=== PATIENT | female | born 1955 | race Caucasian/White ===

== ENCOUNTER 2017-03-09 06:02 | Inpatient (IN) | payer OTHER ==
[2017-03-08 15:55] VITALS: BMI 20.3
[2017-03-09] MEDS ORDERED: ACETAMINOPHEN INJECTION 100 ML IVPB ONE (07:16)
[2017-03-09] MEDS ORDERED: HYDROmorphone HCL/PF 1 MG/ML VIAL (FOR PYXIS CHARGING ONLY) ONE (07:24)
[2017-03-09] MEDS ORDERED: ROCURONIUM BROMIDE 50 MG/5 ML VIAL ONE ×2 (07:24→09:42)
[2017-03-09] MEDS ORDERED: ePHEDrine SULFATE 50 MG/1 ML AMPULE ONE (07:24)
[2017-03-09] MEDS ORDERED: fentaNYL CITRATE 250 MCG/5 ML VIAL ONE (07:24)
[2017-03-09] MEDS ORDERED: PROPOFOL 20 ML ONE ×3 (07:24)
[2017-03-09] MEDS ORDERED: SUCCINYLCHOLINE CHLORIDE 200 MG/10 ML VIAL ONE (07:24)
[2017-03-09] MEDS ORDERED: MIDAZOLAM HCL 2 MG/2 ML SINGLE DOSE VIAL ONE ×2 (07:25)
[2017-03-09] MEDS ORDERED: BUPIVACAINE HCL/PF 0.5% (5MG/ML) 10 ML VIAL ONE (07:28)
[2017-03-09] MEDS ORDERED: VANCOMYCIN 1,000 MG VIAL (RESTRICTED TO ID ONLY) ONE ×2 (07:28→08:41)
[2017-03-09] MEDS ORDERED: SEVOFLURANE 250 ML BTL ONE (07:28)
[2017-03-09] MEDS ORDERED: GENTAMICIN SO4 80 MG/2 ML VIAL ONE (07:28)
[2017-03-09] MEDS ORDERED: LIDOCAINE HCL/PF 2% SDV 5ML VIAL ONE (07:29)
[2017-03-09] MEDS ORDERED: LIDOCAINE 1%/EPI 1:100000 (20 ML MULTI DOSE VIAL) ONE (07:29)
--- NOTE | 2017-03-09 07:38 | HP ---
History & Physical Update - History History: No Change - Physical Physical: No Change - Assessment Assessment: No Change - Plan Plan: No Change
[2017-03-09] MEDS ORDERED: SCOPOLAMINE HYDROBROMIDE 1 PATCH PATCH.TD72 ONE (07:57)
[2017-03-09] MEDS ORDERED: VANCOMYCIN 1 GRAM (PRE-DOCKED) 1,000 MG/250 ML BAG IVPB ONE (08:58)
[2017-03-09] MEDS ORDERED: ceFAZolin SODIUM 1 GM VIAL IVPB ONE (09:15)
[2017-03-09] MEDS ORDERED: LIDOCAINE 1%/EPI 1:100000 (50 ML MULTI DOSE VIAL) INF ONE (09:16)
[2017-03-09] MEDS ORDERED: SODIUM CHLORIDE 0.9% P/F 10 ML VIAL IJ ONE ×2 (10:20→13:29)
[2017-03-09] MEDS ORDERED: GELATIN, ABSORBABLE 100 EACH SPONGE TP ONE (10:22)
[2017-03-09] MEDS ORDERED: MINERAL OIL/PETROLATUM,WHITE 3.5 GM TUBE ONE (10:23)
[2017-03-09] MEDS ORDERED: THROMBIN (BOVINE) 5,000 UNIT VIAL TP ONE (10:23)
[2017-03-09] MEDS ORDERED: DEXAMETHASONE SOD PHOSPHATE 4 MG/1 ML VIAL ONE (10:26)
[2017-03-09] MEDS ORDERED: PROMETHAZINE HCL 25 MG/1 ML VIAL IVPB PRN (12:48)
[2017-03-09] MEDS ORDERED: PROMETHAZINE HCL 25 MG/1 ML VIAL IVPUSH PRN (12:48)
[2017-03-09] MEDS ORDERED: ONDANSETRON 4 MG/2 ML VIAL IVPUSH PRN ×2 (12:48→13:55)
[2017-03-09] MEDS ORDERED: HYDROmorphone *PCA* 10MG/50ML DISP.SYRIN PCA ONE (13:38)
[2017-03-09] MEDS ORDERED: LACTATED RINGERS SOLUTION 1,000 ML IV SCH (14:00)
[2017-03-09] MEDS ORDERED: LORazepam 1 MG TABLET PO PRN (14:03)
--- NOTE | 2017-03-09 14:49 | OP ---
Operative Note - Note: Operative Date: 03/09/17 Pre-Operative Diagnosis: spinal stenosis, juxtafacet cyst Operation: L4-L5 laminectomy, resection of juxtfacet cyst, interbody cage placement, posterior fusion of L4-L5 Surgeon: Abhijit Ramos Supervisor [employer]: Olga Bourne Anesthesiologist/SYSTEM SUPPORT TECHNICIAN: Lauro Armenta Anesthesia: General Specimens Removed: ligamentum flavum, juxtafacet cyst Estimated Blood Loss (mls): 100 Drains, Volume Out (mls): 150 (sanchez) Fluid Volume Replaced (mls): 2,000 Operative Report Dictated: Yes
--- NOTE | 2017-03-09 14:51 | SURG ---
Surgery [facility] Note [facility]: Olga Bourne PA-C Date of Service: 03/09/17 Diagnosis: spinal stenosis, juxtafacet cyst Procedure: L4-L5 laminectomy, resection of juxtafacet byst, interbody cage placement, posterior fusion L4-L5. I was present for the entirety of the operative procedure. For further detail, please refer to operative report. Visit type - Case Type Case Type: Scheduled Admission - Emergency Emergency Visit: No - New patient This patient is new to me today: Yes Date on this admission: 03/09/17
[2017-03-09] MEDS: HYDROmorphone *PCA* 10MG/50ML DISP.SYRIN PCA SCH (15:38)
[2017-03-09] MEDS ORDERED: PT OWN MED DRAWER 7, Y5N ONE (17:24)
[2017-03-09] MEDS: CEFAZOLIN 1 GM PUSH 1 GM/10 ML DISP.SYRIN IVPUSH SCH ×2 (17:52→17:53)
[2017-03-09] MEDS: LACTATED RINGERS SOLUTION 1,000 ML IV SCH (21:31)
[2017-03-09] MEDS: ATORVASTATIN CA 10 MG TABLET (FP) PO SCH (21:33)
[2017-03-09] MEDS: HEPARIN NA (PORCINE) 5,000 UNITS/ML 1ML VIAL SQ SCH (21:33)
[2017-03-10] MEDS: CEFAZOLIN 1 GM PUSH 1 GM/10 ML DISP.SYRIN IVPUSH SCH ×3 (01:48→17:59)
[2017-03-10] MEDS: LACTATED RINGERS SOLUTION 1,000 ML IV SCH (05:08)
[2017-03-10] MEDS: HEPARIN NA (PORCINE) 5,000 UNITS/ML 1ML VIAL SQ SCH ×4 (05:48→22:22)
[2017-03-10] MEDS: ACETAMINOPHEN 325 MG TABLET (FP) PO PRN (05:49)
[2017-03-10 08:18] LABS: MCH 31.6 pg (25.7-33.7); MCHC 34.2 g/dl (32.0-36.0); MEAN CELL VOLUME 92.2 fl (80-96); MEAN PLT VOLUME 6.9 fl (7.5-11.1); PLATELET COUNT 212 K/MM3 (134-434); RDW 12.9 % (11.6-15.6)
[2017-03-10 08:30] LABS: ANION GAP 9 (8-16); CALCIUM 8.5 mg/dL (8.5-10.1); CO2 28 mmol/L (21-32); CREATININE 0.6 mg/dL (0.55-1.02); GLUCOSE,RANDOM 104 mg/dL (74-106)
[2017-03-10] MEDS: HYDROmorphone *PCA* 10MG/50ML DISP.SYRIN PCA SCH (08:30)
--- NOTE | 2017-03-10 09:23 | HP ---
Admitting History and Physical - Past Medical History VIBRATION TECHNICIAN: Yes: Other (MENINGIOMA) Cardiovascular: Yes: Hyperlipdemia ...: No Psych: Yes: Bipolar Endocrine: No: Diabetes Mellitus - Past Surgical History Past Surgical History: Yes: Craniotomy (MENGIOMA 10 YEARS AGO) - Advance Directives Advance Directives: Yes: Living Will - Smoking History Smoking history: Former smoker Have you smoked in the past 12 months: No - Alcohol/Substance Use Hx Alcohol Use: Yes (DAILY 2 GLASSES WHITE WINE) Home Medications - Allergies Allergies/Adverse Reactions: Allergies Allergy/AdvReac Type Severity Reaction Status Date / Time No Known Drug Allergies Allergy Verified 03/09/17 07:07 - Home Medications Home Medications: Ambulatory Orders Bupropion HCl [Bupropion HCl ER] 200 mg PO DAILY 03/08/17 Lamotrigine [Lamictal (Green)] 200 mg PO DAILY 03/08/17 Lisinopril 10 mg PO DAILY 03/08/17 Lorazepam 1 mg PO ASDIR 03/08/17 Pravastatin Sodium 20 mg PO HS 03/08/17 Sertraline HCl [Zoloft] 200 mg PO DAILY 03/08/17 Review of Systems - Review of Systems Cardiovascular: denies: Chest Pain, Palpitations Respiratory: denies: SOB Gastrointestinal: denies: Abdominal Pain Musculoskeletal: reports: Back Pain Physical Examination Vital Signs: Vital Signs Temperature 101.6 F H 03/10/17 08:00 Pulse Rate 100 H 03/10/17 08:30 Respiratory Rate 20 03/10/17 08:30 Blood Pressure 115/55 03/10/17 08:30 O2 Sat by Pulse Oximetry (%) 94 L 03/09/17 21:00 Constitutional: Yes: Calm Cardiovascular: Yes: Regular Rate and Rhythm Respiratory: Yes: Regular, CTA Bilaterally Gastrointestinal: Yes: Normal Bowel Sounds, Soft. No: Tenderness Edema: No Neurological: Yes: Alert, Oriented Labs: CBC, BMP 03/10/17 07:40 03/10/17 07:40 Problem List - Problems (1) S/P laminectomy Assessment/Plan: PER N/S PAIN CONTROL PT Laboratory Tests 03/10/17 07:40 Hgb 10.1 L D Hct 29.5 L D Code(s): Z98.890 - OTHER SPECIFIED POSTPROCEDURAL STATES (2) HLD (hyperlipidemia) Assessment/Plan: STABLE ON STATIN Code(s): E78.5 - HYPERLIPIDEMIA, UNSPECIFIED (3) Bipolar 1 disorder Assessment/Plan: SAME MEDS MONITOR Code(s): F31.9 - BIPOLAR DISORDER, UNSPECIFIED (4) S/P resection of meningioma Code(s): Z98.890 - OTHER SPECIFIED POSTPROCEDURAL STATES; Z86.018 - PERSONAL HISTORY OF OTHER BENIGN NEOPLASM (5) Fever Assessment/Plan: POSTOP INCENTIVE SPIROMETRY NAVA OUT WBC NORMAL MONITOR Code(s): R50.9 - FEVER, UNSPECIFIED
[2017-03-10] MEDS: LORazepam 1 MG TABLET PO PRN ×2 (09:24→22:21)
[2017-03-10] MEDS: lamoTRIgine 100 MG TABLET (FP) PO SCH (09:24)
[2017-03-10] MEDS: SERTRALINE HCL 50 MG TABLET (FP) PO SCH (09:25)
[2017-03-10] MEDS ORDERED: PATIENT'S OWN MEDICATION (NON-FORMULARY) (Bupropion Hcl [Bupropion Hcl Er] 200 MG) PO SCH (10:00)
[2017-03-10] MEDS ORDERED: SENNOSIDES 8.6MG TABLET (FP) PO PRN (12:00)
--- NOTE | 2017-03-10 12:02 | PN ---
Progress Note (short form) - Note Progress Note: Surgery note POD #1 s/p L4-L5 laminectomy, resection of juxtfacet cyst, interbody cage placement, posterior fusion of L4-L5. Patient seen and examined at bedside with Dr Ramos. Patient with low grade fever. Patient c/o 10/10 pain on NON DESTRUCTIVE TESTER but resting comfortably in bed. Patient is pleasant and talkative. She is tolerating a clear diet and denies any CP, chills, N/V. She denies any new radicular symptoms or paresthesias in B/L LE. Vital Signs Temp 101.6 F H 03/10/17 08:00 Pulse 100 H 03/10/17 08:30 Resp 20 03/10/17 08:30 BP 115/55 03/10/17 08:30 Pulse Ox 94 L 03/09/17 21:00 Intake & Output 03/09/17 03/10/17 03/10/17 23:59 11:59 23:59 Intake Total 500 1500 Output Total 1390 710 Balance -890 790 Intake: IV 200 1500 Lactated Ringers Solution 1500 1,000 ml @ 125 mls/hr IV ASDIR [facility] Rx#: [id number] Oral 300 Output: Drainage 190 110 Lower Back 90 110 Urine 1200 600 Ricks 900 600 Other: Voiding Method Indwelling Catheter CBC, BMP 03/10/17 07:40 03/10/17 07:40 PE: A&Ox3, NAD Unlabored resp on RA Dressings, C/D/I with surrounding skin intact and no evidence of tracking erythema. BENITA drain at right lumbar intact with serosanginous d/c B/L LE compartments soft, supple and non-tender to palpation, NVID with 5/5 strength on dorsi/plantar flexion. Assessment and plan: S/P Lumbar fusion and resection of cyst doing well with low grade fever. 1) Continue Current POC-ancef Q8hrs while BENITA drain in place. 2) DVT prophylaxis with b/l scds and heparin 3) OOB with PT-as tolerated 4) Encourage IS-reinforced with patient
[2017-03-10] MEDS: LISINOPRIL 10 MG TABLET (FP) PO SCH (13:05)
--- NOTE | 2017-03-10 15:33 | PN ---
Progress Note, Physician Chief Complaint: Pt. pain controlled with WAITER/WAITRESS TAVERN, no GA complications. - Current Medication List Current Medications: Active Medications Acetaminophen (Tylenol -) 650 mg PO Q6H PRN Last Admin: 03/10/17 05:49 Dose: 650 mg Atorvastatin Calcium (Lipitor -) 10 mg PO HS [facility] Last Admin: 03/09/17 21:33 Dose: 10 mg Heparin Sodium (Porcine) (Heparin -) 5,000 unit SQ TID [facility] Last Admin: 03/10/17 13:13 Dose: 5,000 unit Hydromorphone HCl (Dilaudid Insurance Examiner -) 10 mg WAITER/WAITRESS TAVERN WAITER/WAITRESS TAVERN [facility] PRN Reason: Protocol Stop: 03/16/17 12:48 Last Admin: 03/10/17 08:30 Dose: 10 mg Cefazolin Sodium (Ancef -) 1 gm in 10 mls @ 100 mls/hr IVPUSH Q8H-IV [facility] Last Admin: 03/10/17 09:45 Dose: 100 mls/hr Lamotrigine (Lamictal -) 200 mg PO DAILY [facility] Last Admin: 03/10/17 09:24 Dose: 200 mg Lisinopril (Prinivil) 10 mg PO DAILY [facility] Last Admin: 03/10/17 13:05 Dose: Not Given Lorazepam (Ativan -) 1 mg PO Q12H PRN PRN Reason: ANXIETY Last Admin: 03/10/17 09:24 Dose: 1 mg Non-Formulary Medication (Bupropion Hcl [Bupropion Hcl Er]) 200 mg PO DAILY [facility] Ondansetron HCl (Zofran Injection) 4 mg IVPUSH Q6H PRN PRN Reason: NAUSEA AND/OR VOMITING Ondansetron HCl (Zofran Injection) 4 mg IVPUSH Q4H PRN PRN Reason: NAUSEA AND/OR VOMITING Ondansetron HCl (Zofran Injection) 4 mg IVPUSH Q6H PRN PRN Reason: NAUSEA AND/OR VOMITING Promethazine HCl (Phenergan Injection -) 12.5 mg IVPB Q6H PRN PRN Reason: NAUSEA AND/OR VOMITING Senna (Senna -) 2 tab PO HS PRN PRN Reason: CONSTIPATION Sertraline HCl (Zoloft -) 200 mg PO DAILY [facility] Last Admin: 03/10/17 09:25 Dose: 200 mg - Objective Vital Signs: Vital Signs Temperature 100.2 F H 03/10/17 13:02 Pulse Rate 102 H 03/10/17 13:02 Respiratory Rate 18 03/10/17 13:02 Blood Pressure 115/55 03/10/17 13:02 O2 Sat by Pulse Oximetry (%) 94 L 03/09/17 21:00 Constitutional: Yes: Well Nourished, No Distress, Calm Musculoskeletal: Yes: WNL Neurological: Yes: WNL, Alert, Oriented Labs: CBC, BMP 03/10/17 07:40 03/10/17 07:40 Assessment/Plan POD#1 s/p L4-5 Laminectomy and fusion under GA. Still using WAITER/WAITRESS TAVERN for pain control. Doing well. Continue WAITER/WAITRESS TAVERN
--- NOTE | 2017-03-10 15:52 | PATH ---
Surgical Pathology Report Patient Name: DEVIN PITTS [facility]. Rec. #: [id number] /Age/Gender: 1955 (Age: 61) / F Account: [id number] Location: [address] [place] [address] Taken: 03/09/2017 Received: 03/09/2017 Reported: 03/10/2017 Physicians: Abhijit Cabral M.D. Specimen(s) Received A: LIGAMENTUM FLAVUM B: JUXTA FACET CYST Clinical History L4-L5 stenosis with juxta facet cyst Final Diagnosis A. LIGAMENTUM FLAVUM, RESECTION: FIBROCOLLAGENOUS TISSUE, CARTILAGE, BONE AND SKELETAL MUSCLE. B. JUXTA-FACETCYST, RESECTION: PREDOMINANTLY FIBROCOLLAGENOUS TISSUE AND BONE. DETACHED FRAGMENTS OF FIBROUS TISSUE WITH GRANULATION TISSUE FORMATION, SUGGESTIVE OF CYST WALL. Electronically Signed Nusrat Lay M.D. Gross Description A. Received in formalin labeled "ligamentum flavum," is a 4.0 x 1.7 x 0.4 cm irregular portion of fibrous tissue, consistent with a ligament. Shipping Point Inspector sections are submitted in one cassette. B. Received in formalin labeled "juxta facet cyst," is a 1.8 x 1.5 x 0.3 cm aggregate of weathers fragments of fibrous tissue. The specimen is entirely submitted in one cassette 03/09/201703/09/2017
[2017-03-10] MEDS: LACTATED RINGERS SOLUTION 1,000 ML/1,000 ML INFUS.BAG IV SCH (17:07)
[2017-03-10] MEDS: ATORVASTATIN CA 10 MG TABLET (FP) PO SCH ×2 (21:17→22:21)
[2017-03-11] MEDS: ACETAMINOPHEN 325 MG TABLET (FP) PO PRN ×2 (00:34→17:55)
[2017-03-11] MEDS: CEFAZOLIN 1 GM PUSH 1 GM/10 ML DISP.SYRIN IVPUSH SCH ×3 (01:38→17:33)
[2017-03-11] MEDS: HEPARIN NA (PORCINE) 5,000 UNITS/ML 1ML VIAL SQ SCH ×3 (06:16→21:12)
[2017-03-11 07:52] LABS: BASOPHIL 0.2 % (0-2.0); EOSINOPHIL 0.3 % (0-4.5); MCH 31.3 pg (25.7-33.7); MCHC 33.6 g/dl (32.0-36.0); MEAN CELL VOLUME 93.2 fl (80-96); MEAN PLT VOLUME 6.9 fl (7.5-11.1); PLATELET COUNT 213 K/MM3 (134-434)
[2017-03-11 08:22] LABS: ALBUMIN 2.6 g/dl (3.4-5.0); ALK PHOS 40 U/L (45-117); ANION GAP 8 (8-16); BILIRUBIN,TOTAL 0.6 mg/dL (0.2-1.0); CO2 29 mmol/L (21-32); CREATININE 0.5 mg/dL (0.55-1.02); GLUCOSE,RANDOM 93 mg/dL (74-106); SGOT/AST 22 U/L (15-37); SGPT/ALT 19 U/L (12-78)
[2017-03-11] MEDS ORDERED: PT OWN MED DRAWER 7, Y5N ONE ×2 (09:35→17:29)
[2017-03-11] MEDS: SERTRALINE HCL 50 MG TABLET (FP) PO SCH (09:36)
[2017-03-11] MEDS: lamoTRIgine 100 MG TABLET (FP) PO SCH (09:36)
[2017-03-11] MEDS: POTASSIUM CHLORIDE TABS 20 MEQ TABLET.ER (FP) PO SCH ×2 (11:38→21:12)
[2017-03-11] MEDS: LISINOPRIL 10 MG TABLET (FP) PO SCH (11:39)
--- NOTE | 2017-03-11 12:11 | PN ---
Progress Note, Physician Chief Complaint: POD 2 s/p laminectomy of l4-l5 on field reimbursement manager pump passing gas did ambulate with PT today fever of 101 today - Current Medication List Current Medications: Active Medications Acetaminophen (Tylenol -) 650 mg PO Q6H PRN Last Admin: 03/11/17 00:34 Dose: 650 mg Atorvastatin Calcium (Lipitor -) 10 mg PO HS [facility] Last Admin: 03/10/17 22:21 Dose: 10 mg Heparin Sodium (Porcine) (Heparin -) 5,000 unit SQ TID [facility] Last Admin: 03/11/17 06:16 Dose: 5,000 unit Hydromorphone HCl (Dilaudid Spinning Room Worker -) 10 mg HOT STRIP MILL SUPERVISOR HOT STRIP MILL SUPERVISOR [facility] PRN Reason: Protocol Stop: 03/16/17 12:48 Last Admin: 03/10/17 08:30 Dose: 10 mg Cefazolin Sodium (Ancef -) 1 gm in 10 mls @ 100 mls/hr IVPUSH Q8H-IV [facility] Last Admin: 03/11/17 09:37 Dose: 100 mls/hr Lactated Ringer's (Lactated Ringers Solution) 1,000 ml in 1,000 mls @ 10 mls/ hr IV ASDIR [facility] Last Admin: 03/10/17 17:07 Dose: 10 mls/hr Lamotrigine (Lamictal -) 200 mg PO DAILY [facility] Last Admin: 03/11/17 09:36 Dose: 200 mg Lisinopril (Prinivil) 10 mg PO DAILY [facility] Last Admin: 03/11/17 11:39 Dose: 10 mg Lorazepam (Ativan -) 1 mg PO Q12H PRN PRN Reason: ANXIETY Last Admin: 03/10/17 22:21 Dose: 1 mg Non-Formulary Medication (Bupropion Hcl [Bupropion Hcl Er]) 200 mg PO DAILY [facility] Ondansetron HCl (Zofran Injection) 4 mg IVPUSH Q6H PRN PRN Reason: NAUSEA AND/OR VOMITING Ondansetron HCl (Zofran Injection) 4 mg IVPUSH Q4H PRN PRN Reason: NAUSEA AND/OR VOMITING Ondansetron HCl (Zofran Injection) 4 mg IVPUSH Q6H PRN PRN Reason: NAUSEA AND/OR VOMITING Potassium Chloride (K-Dur -) 20 meq PO BID [facility] Stop: 03/12/17 22:01 Last Admin: 03/11/17 11:38 Dose: 20 meq Promethazine HCl (Phenergan Injection -) 12.5 mg IVPB Q6H PRN PRN Reason: NAUSEA AND/OR VOMITING Senna (Senna -) 2 tab PO HS [facility] Sertraline HCl (Zoloft -) 200 mg PO DAILY [facility] Last Admin: 03/11/17 09:36 Dose: 200 mg - Objective Vital Signs: Vital Signs Temperature 99.9 F H 03/11/17 09:07 Pulse Rate 97 H 03/11/17 09:07 Respiratory Rate 20 03/11/17 09:07 Blood Pressure 109/59 03/11/17 09:07 O2 Sat by Pulse Oximetry (%) 94 L 03/09/17 21:00 Constitutional: Yes: Calm Cardiovascular: Yes: Regular Rate and Rhythm, S1, S2 Respiratory: Yes: CTA Bilaterally Gastrointestinal: Yes: Normal Bowel Sounds, Soft Musculoskeletal: Yes: Other (lower back dresing intact, BENITA drain with serosanginous drainage) Edema: No Neurological: Yes: Alert, Oriented Labs: CBC, BMP 03/11/17 06:35 03/11/17 06:35 Problem List - Problems (1) S/P laminectomy Assessment/Plan: POD 2 field reimbursement manager pump for pain control stool softners iv abx for fever of 101 dvt ppx incentive spirometry Code(s): Z98.890 - OTHER SPECIFIED POSTPROCEDURAL STATES (2) HLD (hyperlipidemia) Assessment/Plan: statin Code(s): E78.5 - HYPERLIPIDEMIA, UNSPECIFIED (3) Hypokalemia Assessment/Plan: repleted check in AM labs Code(s): E87.6 - HYPOKALEMIA
--- NOTE | 2017-03-11 13:26 | PN ---
Progress Note (short form) - Note Progress Note: POD #2 - s/p L4-L5 laminectomy with fusion, on dilaudid SALES DEVELOPMENT CONSULTANT for post-op pain management. VSS. Pt. doing well, resting comfortably in bed. No complaints. Discussed discontinuing IV dilaudid SALES DEVELOPMENT CONSULTANT and ordering PO oxycodone with pt. who agrees. Continue current care.
[2017-03-11] MEDS ORDERED: oxyCODONE HCL 5 MG TABLET PO PRN (13:27)
[2017-03-11] MEDS: LACTATED RINGERS SOLUTION 1,000 ML/1,000 ML INFUS.BAG IV SCH (13:27)
[2017-03-11] MEDS: HYDROmorphone *PCA* 10MG/50ML DISP.SYRIN PCA SCH (13:50)
[2017-03-11] MEDS: oxyCODONE HCL 5 MG TABLET PO PRN (17:36)
[2017-03-11] MEDS: LORazepam 1 MG TABLET PO PRN (19:28)
[2017-03-11] MEDS: ATORVASTATIN CA 10 MG TABLET (FP) PO SCH (21:12)
[2017-03-11] MEDS: SENNOSIDES 8.6MG TABLET (FP) PO SCH (21:15)
[2017-03-12] MEDS ORDERED: PT OWN MED DRAWER 7, Y5N ONE ×2 (02:30→09:29)
[2017-03-12] MEDS: CEFAZOLIN 1 GM PUSH 1 GM/10 ML DISP.SYRIN IVPUSH SCH ×3 (02:41→09:37)
[2017-03-12] MEDS: ACETAMINOPHEN 325 MG TABLET (FP) PO PRN ×3 (03:40→18:07)
[2017-03-12] MEDS: HEPARIN NA (PORCINE) 5,000 UNITS/ML 1ML VIAL SQ SCH ×3 (05:57→21:14)
[2017-03-12] MEDS: HYDROmorphone *PCA* 10MG/50ML DISP.SYRIN PCA SCH (07:20)
[2017-03-12 09:10] LABS: MCH 31.6 pg (25.7-33.7); MCHC 34.5 g/dl (32.0-36.0); MEAN CELL VOLUME 91.8 fl (80-96); MEAN PLT VOLUME 7.2 fl (7.5-11.1); PLATELET COUNT 228 K/MM3 (134-434); RDW 12.9 % (11.6-15.6); WHITE BLOOD COUNT 7.7 K/mm3 (4.0-10.0)
[2017-03-12 09:31] LABS: ALBUMIN 2.6 g/dl (3.4-5.0); ANION GAP 9 (8-16); CALCIUM 7.9 mg/dL (8.5-10.1); CO2 27 mmol/L (21-32); CREATININE 0.4 mg/dL (0.55-1.02); GLUCOSE,RANDOM 112 mg/dL (74-106); SGOT/AST 16 U/L (15-37); SGPT/ALT 18 U/L (12-78)
[2017-03-12] MEDS: LISINOPRIL 10 MG TABLET (FP) PO SCH (09:33)
[2017-03-12] MEDS: POTASSIUM CHLORIDE TABS 20 MEQ TABLET.ER (FP) PO SCH ×2 (09:33→21:13)
[2017-03-12 09:34] LABS: ALK PHOS 46 U/L (45-117); BILIRUBIN,TOTAL 0.6 mg/dL (0.2-1.0); TOT PROT 5.3 g/dl (6.4-8.2)
[2017-03-12] MEDS: SERTRALINE HCL 50 MG TABLET (FP) PO SCH (09:34)
[2017-03-12] MEDS: lamoTRIgine 100 MG TABLET (FP) PO SCH (09:34)
--- NOTE | 2017-03-12 12:21 | PN ---
Progress Note, Physician Chief Complaint: patient seen and examined she ambulate today off the driveway sealer pump on po meds having pain but took her medication which helped and she then napped - Current Medication List Current Medications: Active Medications Acetaminophen (Tylenol -) 650 mg PO Q6H PRN Last Admin: 03/12/17 09:34 Dose: 650 mg Atorvastatin Calcium (Lipitor -) 10 mg PO HS [facility] Last Admin: 03/11/17 21:12 Dose: 10 mg Heparin Sodium (Porcine) (Heparin -) 5,000 unit SQ TID [facility] Last Admin: 03/12/17 05:57 Dose: 5,000 unit Cefazolin Sodium (Ancef -) 1 gm in 10 mls @ 100 mls/hr IVPUSH Q8H-IV [facility] Last Admin: 03/12/17 09:37 Dose: 100 mls/hr Lactated Ringer's (Lactated Ringers Solution) 1,000 ml in 1,000 mls @ 10 mls/ hr IV ASDIR [facility] Last Admin: 03/11/17 13:27 Dose: Not Given Lamotrigine (Lamictal -) 200 mg PO DAILY [facility] Last Admin: 03/12/17 09:34 Dose: 200 mg Lisinopril (Prinivil) 10 mg PO DAILY [facility] Last Admin: 03/12/17 09:33 Dose: 10 mg Lorazepam (Ativan -) 1 mg PO Q12H PRN PRN Reason: ANXIETY Last Admin: 03/11/17 19:28 Dose: 1 mg Non-Formulary Medication (Bupropion Hcl [Bupropion Hcl Er]) 200 mg PO DAILY [facility] Ondansetron HCl (Zofran Injection) 4 mg IVPUSH Q6H PRN PRN Reason: NAUSEA AND/OR VOMITING Ondansetron HCl (Zofran Injection) 4 mg IVPUSH Q4H PRN PRN Reason: NAUSEA AND/OR VOMITING Ondansetron HCl (Zofran Injection) 4 mg IVPUSH Q6H PRN PRN Reason: NAUSEA AND/OR VOMITING Oxycodone HCl (Roxicodone -) 5 mg PO Q4H PRN PRN Reason: PAIN Last Admin: 03/11/17 17:36 Dose: 5 mg Oxycodone HCl (Roxicodone -) 10 mg PO Q4H PRN PRN Reason: PAIN Stop: 03/12/17 13:26 Last Admin: 03/12/17 09:34 Dose: 10 mg Potassium Chloride (K-Dur -) 20 meq PO BID [facility] Stop: 03/12/17 22:01 Last Admin: 03/12/17 09:33 Dose: 20 meq Promethazine HCl (Phenergan Injection -) 12.5 mg IVPB Q6H PRN PRN Reason: NAUSEA AND/OR VOMITING Senna (Senna -) 2 tab PO HS [facility] Last Admin: 03/11/17 21:15 Dose: 2 tab Sertraline HCl (Zoloft -) 200 mg PO DAILY [facility] Last Admin: 03/12/17 09:34 Dose: 200 mg - Objective Vital Signs: Vital Signs Temperature 99.1 F 03/12/17 09:37 Pulse Rate 88 03/12/17 09:37 Respiratory Rate 20 03/12/17 09:37 Blood Pressure 130/71 03/12/17 09:37 O2 Sat by Pulse Oximetry (%) 96 03/12/17 09:00 Constitutional: Yes: Calm Neck: Yes: Trachea Midline Cardiovascular: Yes: Regular Rate and Rhythm, S1, S2 Respiratory: Yes: CTA Bilaterally Gastrointestinal: Yes: Normal Bowel Sounds, Soft Musculoskeletal: Yes: Back Pain, Other (back dressing with BENITA drain serosanginous) Neurological: Yes: Alert, Oriented Labs: CBC, BMP 03/12/17 08:55 03/12/17 08:55 Problem List - Problems (1) S/P laminectomy Assessment/Plan: POD 3 driveway sealer pump for pain control- stopped and change to oral meds stool softners iv abx for fever of 101yesterday- today temp 100.2 dvt ppx incentive spirometry Code(s): Z98.890 - OTHER SPECIFIED POSTPROCEDURAL STATES (2) HLD (hyperlipidemia) Assessment/Plan: statin Code(s): E78.5 - HYPERLIPIDEMIA, UNSPECIFIED (3) Hypokalemia Assessment/Plan: repleted got potassium right now patricia get another dose tonight check Mag as well Code(s): E87.6 - HYPOKALEMIA
[2017-03-12] MEDS: oxyCODONE HCL 5 MG TABLET PO PRN ×2 (13:57→18:07)
--- NOTE | 2017-03-12 14:09 | PN ---
Progress Note (short form) - Note Progress Note: spoke to dr gallegos he is concerned patient is more confused ordered cxr to r.o underlying infection on abx repeat a bmp and cbc in evening potassium repleted dr wiseman consulted to see patient regarding her psychotropic home medications Problem List - Problems (1) S/P laminectomy Code(s): Z98.890 - OTHER SPECIFIED POSTPROCEDURAL STATES (2) HLD (hyperlipidemia) Code(s): E78.5 - HYPERLIPIDEMIA, UNSPECIFIED (3) Hypokalemia Code(s): E87.6 - HYPOKALEMIA
--- NOTE | 2017-03-12 16:30 | PN ---
Progress Note (short form) - Note Progress Note: Surgery note POD #3 s/p L4-L5 laminectomy, resection of juxtfacet cyst, interbody cage placement, posterior fusion of L4-L5. Patient seen and examined at bedside with Dr Ramos. Patient with low grade fever that has been intermittent throughout the post op course. Patient states pain is controlled with oral pain meds. Patient is pleasant and talkative. She is tolerating a regular diet and denies any CP, chills, N/V. She denies any new radicular symptoms or paresthesias in B /L LE. Vital Signs Temp 99.3 F 03/12/17 14:30 Pulse 83 03/12/17 14:30 Resp 20 03/12/17 14:30 BP 103/53 03/12/17 14:30 Pulse Ox 96 03/12/17 09:00 Intake & Output 03/11/17 03/12/17 03/12/17 23:59 11:59 23:59 Intake Total 500 Output Total 80 Balance -80 500 Intake: Oral 500 Output: Drainage 80 Lower Back 80 Other: Voiding Method Toilet Toilet Toilet # Unmeasured Voids Ricks 2 CBC, BMP 03/12/17 08:55 03/12/17 08:55 PE: A&Ox3, NAD Tmax 100.2, VSS Unlabored resp on RA Dressings, C/D/I with surrounding skin intact and no evidence of tracking erythema. kelsey insitu. incision redressed with dermabond and new mepilex. BENITA drain at right lumbar area d/c'd with tip fully intact and 20cc of serosanginous d/c in bulb. site redressed with 4x4 and op site B/L LE compartments soft, supple and non-tender to palpation, NVID with 5/5 strength on dorsi/plantar flexion. Patient fitted with TLSO brace Assessment and plan: S/P Lumbar fusion and resection of cyst doing well with low grade fever of unclear etiology. Dr Ramos discussed evaluation and plan with medical team directly. 1) Medicine following. 2) DVT prophylaxis with b/l scds and heparin 3) OOB with TLSO brace and PT-as tolerated 4) Encourage IS-reinforced with patient 5) d/c planning if medically appropriate for tomorrow
[2017-03-12 17:07] LABS: BASOPHIL 0.3 % (0-2.0); EOSINOPHIL 0.8 % (0-4.5); MCH 32.1 pg (25.7-33.7); MCHC 34.8 g/dl (32.0-36.0); MEAN CELL VOLUME 92.2 fl (80-96); MEAN PLT VOLUME 7.4 fl (7.5-11.1); NEUTROPHILS 70.8 % (42.8-82.8); PLATELET COUNT 268 K/MM3 (134-434); RDW 12.9 % (11.6-15.6); WHITE BLOOD COUNT 8.3 K/mm3 (4.0-10.0)
[2017-03-12] MEDS: ONDANSETRON 4 MG/2 ML VIAL IVPUSH PRN (17:15)
--- NOTE | 2017-03-12 17:39 | PN ---
Progress Note (short form) - Note Progress Note: Asked to see Ms. Contreras, to assist with her psychiatric meds. She [place] for [place] flight[place]ticket She was found walking around the room. Denies mood symptoms/ lela/ irritability. List of her meds seen: MS Alert, fully oriented x4 speech nl, logical coherent non pressured mood-describes as " Im OK!" affect congruent thought process/content- normal no psychotic symptoms No suicidal/homicidal ideation AP Hx of Bipolar Disorder Hx of coexisting Anxiety disorder Current meds " Lamictal 200 mg daily zoloft 100mg- 2 tabs daily Ativan 1 mgs 2 to 3 tabs daily bupriprion 200mgs daily [place] out of state and has medications at home, she says.
[2017-03-12 17:40] LABS: ANION GAP 5 (8-16); CALCIUM 8.2 mg/dL (8.5-10.1); CO2 29 mmol/L (21-32); CREATININE 0.5 mg/dL (0.55-1.02); GLUCOSE,RANDOM 96 mg/dL (74-106)
[2017-03-12] MEDS: ATORVASTATIN CA 10 MG TABLET (FP) PO SCH (21:13)
[2017-03-12] MEDS: SENNOSIDES 8.6MG TABLET (FP) PO SCH (21:13)
[2017-03-12] MEDS: oxyCODONE HCL 10 MG SUSTAINED ACTING TABLET PO SCH (21:13)
[2017-03-13] MEDS: oxyCODONE HCL 5 MG TABLET PO PRN ×4 (05:49→19:49)
[2017-03-13] MEDS: HEPARIN NA (PORCINE) 5,000 UNITS/ML 1ML VIAL SQ SCH ×3 (05:49→21:23)
[2017-03-13 07:51] LABS: MCH 31.5 pg (25.7-33.7); MCHC 34.1 g/dl (32.0-36.0); MEAN CELL VOLUME 92.3 fl (80-96); MEAN PLT VOLUME 7.2 fl (7.5-11.1); PLATELET COUNT 275 K/MM3 (134-434); WHITE BLOOD COUNT 6.2 K/mm3 (4.0-10.0)
[2017-03-13 08:40] LABS: ALBUMIN 2.5 g/dl (3.4-5.0); ALK PHOS 45 U/L (45-117); ANION GAP 6 (8-16); BILIRUBIN,TOTAL 0.3 mg/dL (0.2-1.0); CALCIUM 8.4 mg/dL (8.5-10.1); CO2 29 mmol/L (21-32); CREATININE 0.6 mg/dL (0.55-1.02); GLUCOSE,RANDOM 82 mg/dL (74-106); SGOT/AST 15 U/L (15-37); SGPT/ALT 16 U/L (12-78); TOT PROT 5.2 g/dl (6.4-8.2)
[2017-03-13] MEDS: oxyCODONE HCL 10 MG SUSTAINED ACTING TABLET PO SCH ×2 (09:09→21:21)
[2017-03-13] MEDS: SERTRALINE HCL 50 MG TABLET (FP) PO SCH (09:09)
[2017-03-13] MEDS: lamoTRIgine 100 MG TABLET (FP) PO SCH (09:09)
[2017-03-13] MEDS: LISINOPRIL 10 MG TABLET (FP) PO SCH (09:10)
[2017-03-13] MEDS: ONDANSETRON 4 MG/2 ML VIAL IVPUSH PRN (10:59)
[2017-03-13] MEDS ORDERED: IBUPROFEN 800 MG/8 ML IJ IVPB PRN (12:22)
--- NOTE | 2017-03-13 12:23 | PN ---
Progress Note, Physician History of Present Illness: C/O BACK PAIN AWAKE ALERT NOT CONFUSED AT THIS TIME - Current Medication List Current Medications: Active Medications Acetaminophen (Tylenol -) 650 mg PO Q6H PRN Last Admin: 03/12/17 18:07 Dose: 650 mg Atorvastatin Calcium (Lipitor -) 10 mg PO HS [facility] Last Admin: 03/12/17 21:13 Dose: 10 mg Heparin Sodium (Porcine) (Heparin -) 5,000 unit SQ TID [facility] Last Admin: 03/13/17 05:49 Dose: 5,000 unit Lactated Ringer's (Lactated Ringers Solution) 1,000 ml in 1,000 mls @ 10 mls/ hr IV ASDIR [facility] Last Admin: 03/11/17 13:27 Dose: Not Given Ibuprofen (Caldolor Injection -) 600 mg IVPB Q8H PRN PRN Reason: FEVER Lamotrigine (Lamictal -) 200 mg PO DAILY [facility] Last Admin: 03/13/17 09:09 Dose: 200 mg Lisinopril (Prinivil) 10 mg PO DAILY [facility] Last Admin: 03/13/17 09:10 Dose: 10 mg Lorazepam (Ativan -) 1 mg PO Q12H PRN PRN Reason: ANXIETY Last Admin: 03/11/17 19:28 Dose: 1 mg Non-Formulary Medication (Bupropion Hcl [Bupropion Hcl Er]) 200 mg PO DAILY [facility] Ondansetron HCl (Zofran Injection) 4 mg IVPUSH Q6H PRN PRN Reason: NAUSEA AND/OR VOMITING Ondansetron HCl (Zofran Injection) 4 mg IVPUSH Q4H PRN PRN Reason: NAUSEA AND/OR VOMITING Last Admin: 03/13/17 10:59 Dose: 4 mg Ondansetron HCl (Zofran Injection) 4 mg IVPUSH Q6H PRN PRN Reason: NAUSEA AND/OR VOMITING Oxycodone HCl (Roxicodone -) 5 mg PO Q4H PRN PRN Reason: PAIN Last Admin: 03/13/17 08:43 Dose: 5 mg Oxycodone HCl (Oxycontin -) 10 mg PO BID [facility] Last Admin: 03/13/17 09:09 Dose: 10 mg Pantoprazole Sodium (Protonix -) 40 mg PO BID [facility] Promethazine HCl (Phenergan Injection -) 12.5 mg IVPB Q6H PRN PRN Reason: NAUSEA AND/OR VOMITING Senna (Senna -) 2 tab PO HS [facility] Last Admin: 03/12/17 21:13 Dose: 2 tab Sertraline HCl (Zoloft -) 200 mg PO DAILY [facility] Last Admin: 03/13/17 09:09 Dose: 200 mg - Objective Vital Signs: Vital Signs Temperature 99.2 F 03/13/17 09:11 Pulse Rate 92 H 03/13/17 09:11 Respiratory Rate 20 03/13/17 09:11 Blood Pressure 136/72 03/13/17 09:11 O2 Sat by Pulse Oximetry (%) 96 03/12/17 20:34 Cardiovascular: Yes: Regular Rate and Rhythm Respiratory: Yes: Regular, CTA Bilaterally Gastrointestinal: Yes: Normal Bowel Sounds, Soft Labs: CBC, BMP 03/13/17 05:23 03/13/17 05:23 Problem List - Problems (1) S/P laminectomy Assessment/Plan: PER N/S PAIN CONTROL PT Laboratory Tests 03/10/17 07:40 Hgb 10.1 L D Hct 29.5 L D ADD MOTRIN Code(s): Z98.890 - OTHER SPECIFIED POSTPROCEDURAL STATES (2) HLD (hyperlipidemia) Assessment/Plan: STABLE ON STATIN Code(s): E78.5 - HYPERLIPIDEMIA, UNSPECIFIED (3) Bipolar 1 disorder Assessment/Plan: MONITOR PSYCH ON CASE Code(s): F31.9 - BIPOLAR DISORDER, UNSPECIFIED (4) S/P resection of meningioma Code(s): Z98.890 - OTHER SPECIFIED POSTPROCEDURAL STATES; Z86.018 - PERSONAL HISTORY OF OTHER BENIGN NEOPLASM (5) Fever Assessment/Plan: POSTOP INCENTIVE SPIROMETRY NAVA OUT WBC NORMAL MONITOR Code(s): R50.9 - FEVER, UNSPECIFIED
[2017-03-13] MEDS: PANTOPRAZOLE 40 MG TABLET (FP) PO SCH ×2 (13:11→21:21)
[2017-03-13] MEDS: ATORVASTATIN CA 10 MG TABLET (FP) PO SCH (21:21)
[2017-03-13] MEDS: SENNOSIDES 8.6MG TABLET (FP) PO SCH (21:21)
[2017-03-13] MEDS: ACETAMINOPHEN 325 MG TABLET (FP) PO PRN (21:22)
[2017-03-14] MEDS: oxyCODONE HCL 5 MG TABLET PO PRN ×4 (01:29→17:55)
[2017-03-14] MEDS: HEPARIN NA (PORCINE) 5,000 UNITS/ML 1ML VIAL SQ SCH ×3 (05:40→21:07)
[2017-03-14 07:42] LABS: MCH 31.4 pg (25.7-33.7); MCHC 34.2 g/dl (32.0-36.0); MEAN CELL VOLUME 91.8 fl (80-96); PLATELET COUNT 332 K/MM3 (134-434); RDW 12.8 % (11.6-15.6); WHITE BLOOD COUNT 5.2 K/mm3 (4.0-10.0)
[2017-03-14 08:33] LABS: ALBUMIN 2.5 g/dl (3.4-5.0); ANION GAP 6 (8-16); BILIRUBIN,TOTAL 0.5 mg/dL (0.2-1.0); CO2 29 mmol/L (21-32); CREATININE 0.5 mg/dL (0.55-1.02); GLUCOSE,RANDOM 86 mg/dL (74-106); SGOT/AST 22 U/L (15-37); SGPT/ALT 24 U/L (12-78); TOT PROT 5.5 g/dl (6.4-8.2)
[2017-03-14 08:34] LABS: ALK PHOS 52 U/L (45-117)
[2017-03-14] MEDS: SERTRALINE HCL 50 MG TABLET (FP) PO SCH (09:40)
[2017-03-14] MEDS: LISINOPRIL 10 MG TABLET (FP) PO SCH (09:40)
[2017-03-14] MEDS: oxyCODONE HCL 10 MG SUSTAINED ACTING TABLET PO SCH ×2 (09:41→21:07)
[2017-03-14] MEDS: PANTOPRAZOLE 40 MG TABLET (FP) PO SCH ×2 (09:41→21:07)
[2017-03-14] MEDS: lamoTRIgine 100 MG TABLET (FP) PO SCH (09:41)
--- NOTE | 2017-03-14 11:15 | PN ---
Progress Note (short form) - Note Progress Note: Patient comfortable in bed this morning. Seen with Dr. Price and case discussed in detail. Patient does not have any suggestions of fever/infection ( low grade fevers abating; wound clean, dry & intact; WBC normal). Motrin not particularly helpful in her pain management and it would be better to avoid NSAID after fusion procedure. Patient not receiving baseline psychotropic medications (Wellbutrin not on formulary; patient has own meds without bottle precluding pharmacy approval). Patient's spouse is coming from [place] today and we will plan for discharge to [facility] in AM. I will see her in the office on Wednesday and hopefully be able to clear her to return home. All caregivers are of the feeling that if she resumes her home medication regimen and has psychological support from her , that she will hopefully recover quickly.
--- NOTE | 2017-03-14 14:27 | PN ---
Progress Note, Physician History of Present Illness: C/O BACK PAIN AWAKE ALERT NOT CONFUSED AT THIS TIME - Current Medication List Current Medications: Active Medications Acetaminophen (Tylenol -) 650 mg PO Q6H PRN Last Admin: 03/13/17 21:22 Dose: 650 mg Atorvastatin Calcium (Lipitor -) 10 mg PO HS [facility] Last Admin: 03/13/17 21:21 Dose: 10 mg Heparin Sodium (Porcine) (Heparin -) 5,000 unit SQ TID [facility] Last Admin: 03/14/17 14:21 Dose: 5,000 unit Lactated Ringer's (Lactated Ringers Solution) 1,000 ml in 1,000 mls @ 10 mls/ hr IV ASDIR [facility] Last Admin: 03/11/17 13:27 Dose: Not Given Ibuprofen (Caldolor Injection -) 600 mg IVPB Q8H PRN PRN Reason: FEVER Last Admin: 03/13/17 13:11 Dose: 600 mg Lamotrigine (Lamictal -) 200 mg PO DAILY [facility] Last Admin: 03/14/17 09:41 Dose: 200 mg Lisinopril (Prinivil) 10 mg PO DAILY [facility] Last Admin: 03/14/17 09:40 Dose: 10 mg Lorazepam (Ativan -) 1 mg PO Q12H PRN PRN Reason: ANXIETY Last Admin: 03/11/17 19:28 Dose: 1 mg Non-Formulary Medication (Bupropion Hcl [Bupropion Hcl Er]) 200 mg PO DAILY [facility] Ondansetron HCl (Zofran Injection) 4 mg IVPUSH Q6H PRN PRN Reason: NAUSEA AND/OR VOMITING Ondansetron HCl (Zofran Injection) 4 mg IVPUSH Q4H PRN PRN Reason: NAUSEA AND/OR VOMITING Last Admin: 03/13/17 10:59 Dose: 4 mg Ondansetron HCl (Zofran Injection) 4 mg IVPUSH Q6H PRN PRN Reason: NAUSEA AND/OR VOMITING Oxycodone HCl (Roxicodone -) 5 mg PO Q4H PRN PRN Reason: PAIN Last Admin: 03/14/17 12:16 Dose: 5 mg Oxycodone HCl (Oxycontin -) 10 mg PO BID [facility] Last Admin: 03/14/17 09:41 Dose: 10 mg Pantoprazole Sodium (Protonix -) 40 mg PO BID [facility] Last Admin: 03/14/17 09:41 Dose: 40 mg Promethazine HCl (Phenergan Injection -) 12.5 mg IVPB Q6H PRN PRN Reason: NAUSEA AND/OR VOMITING Senna (Senna -) 2 tab PO HS [facility] Last Admin: 03/13/17 21:21 Dose: 2 tab Sertraline HCl (Zoloft -) 200 mg PO DAILY [facility] Last Admin: 03/14/17 09:40 Dose: 200 mg - Objective Vital Signs: Vital Signs Temperature 98.8 F 03/14/17 10:00 Pulse Rate 90 03/14/17 10:00 Respiratory Rate 18 03/14/17 10:00 Blood Pressure 134/66 03/14/17 10:00 O2 Sat by Pulse Oximetry (%) 98 03/13/17 21:00 Cardiovascular: Yes: Regular Rate and Rhythm Respiratory: Yes: Regular, CTA Bilaterally Gastrointestinal: Yes: Normal Bowel Sounds, Soft Wound/Incision: Yes: Concha Intact Labs: CBC, BMP 03/14/17 05:23 03/14/17 05:23 Problem List - Problems (1) S/P laminectomy Assessment/Plan: PER N/S PAIN CONTROL PT Laboratory Tests 03/10/17 07:40 Hgb 10.1 L D Hct 29.5 L D ADD MOTRIN Code(s): Z98.890 - OTHER SPECIFIED POSTPROCEDURAL STATES (2) HLD (hyperlipidemia) Assessment/Plan: STABLE ON STATIN Code(s): E78.5 - HYPERLIPIDEMIA, UNSPECIFIED (3) Bipolar 1 disorder Assessment/Plan: MONITOR PSYCH ON CASE Code(s): F31.9 - BIPOLAR DISORDER, UNSPECIFIED (4) S/P resection of meningioma Code(s): Z98.890 - OTHER SPECIFIED POSTPROCEDURAL STATES; Z86.018 - PERSONAL HISTORY OF OTHER BENIGN NEOPLASM (5) Fever Assessment/Plan: RESOLVED POSTOP INCENTIVE SPIROMETRY NAVA OUT WBC NORMAL MONITOR Code(s): R50.9 - FEVER, UNSPECIFIED
[2017-03-14] MEDS: ACETAMINOPHEN 325 MG TABLET (FP) PO PRN (20:19)
[2017-03-14] MEDS: SENNOSIDES 8.6MG TABLET (FP) PO SCH (21:07)
[2017-03-14] MEDS: ATORVASTATIN CA 10 MG TABLET (FP) PO SCH (21:07)
[2017-03-15] MEDS: oxyCODONE HCL 5 MG TABLET PO PRN ×3 (01:19→11:45)
[2017-03-15] MEDS: HEPARIN NA (PORCINE) 5,000 UNITS/ML 1ML VIAL SQ SCH (05:50)
[2017-03-15 06:33] VITALS: BP 140/60; PULSE 58; TEMP 98.2
--- NOTE | 2017-03-15 08:31 | PN ---
Progress Note (short form) - Note Progress Note: Surgery note POD #6 s/p L4-L5 laminectomy, resection of juxtfacet cyst, interbody cage placement, posterior fusion of L4-L5. Patient seen and examined at bedside with spouse present. Patient with low grade fever that has been intermittent throughout the post op course. Patient states pain is controlled with oral pain meds. She has been ambulating with TLSO brace and walker. Patient is pleasant and talkative. She is tolerating a regular diet, voiding spontaneously and passing lots of gas , she has not had a BM yet. She c/o some right LE radiculopathy with no paresthesia, she denies any denies any CP, chills, N/V. . Vital Signs Temp 98.2 F 03/15/17 06:00 Pulse 58 L 03/15/17 06:00 Resp 20 03/15/17 06:00 BP 140/60 03/15/17 06:00 Pulse Ox 98 03/13/17 21:00 Intake & Output 03/14/17 03/14/17 03/15/17 11:59 23:59 11:59 Intake Total 200 Balance 200 Intake: Oral 200 Other: Voiding Method Toilet Toilet # Unmeasured Voids Ricks 1 Void 2 2 Bowel Movement No No No CBC, BMP 03/14/17 05:23 03/14/17 05:23 PE: A&Ox3, NAD Tmax 100.4, VSS Unlabored resp on RA Incision C/D/I with surrounding skin intact and no evidence of tracking erythema or d/c. kelsey insitu. incision redressed with 4x4 and op sites. Drain site healing well with no evidence of active d/c B/L LE compartments soft, supple and non-tender to palpation, NVID with 5/5 strength on dorsi/plantar flexion. Assessment and plan: S/P Lumbar fusion and resection of cyst doing well with intermittent low grade fever appears to be resolving. 1) pain management 2) DVT prophylaxis with b/l scds and heparin 3) OOB with TLSO brace and PT-as tolerated 4) Encourage IS-reinforced with patient 5) d/c planning for today Evaluation and plan discussed with Dr Ramos.
[2017-03-15] MEDS: PANTOPRAZOLE 40 MG TABLET (FP) PO SCH (09:32)
[2017-03-15] MEDS: LISINOPRIL 10 MG TABLET (FP) PO SCH (09:32)
[2017-03-15] MEDS: oxyCODONE HCL 10 MG SUSTAINED ACTING TABLET PO SCH (09:32)
[2017-03-15] MEDS: SERTRALINE HCL 50 MG TABLET (FP) PO SCH (09:32)
[2017-03-15] MEDS: lamoTRIgine 100 MG TABLET (FP) PO SCH (09:32)
--- NOTE | 2017-03-15 12:15 | PN ---
Progress Note, Physician History of Present Illness: feeling much better today, to be discharged - Objective Vital Signs: Vital Signs Temperature 98.2 F 03/15/17 06:00 Pulse Rate 58 L 03/15/17 06:00 Respiratory Rate 20 03/15/17 09:00 Blood Pressure 140/60 03/15/17 06:00 O2 Sat by Pulse Oximetry (%) 98 03/13/17 21:00 Constitutional: Yes: Well Nourished, No Distress, Calm Cardiovascular: Yes: Regular Rate and Rhythm Respiratory: Yes: Regular Labs: CBC, BMP 03/14/17 05:23 03/14/17 05:23 Problem List - Problems (1) Bipolar 1 disorder Code(s): F31.9 - BIPOLAR DISORDER, UNSPECIFIED (2) S/P laminectomy Code(s): Z98.890 - OTHER SPECIFIED POSTPROCEDURAL STATES Assessment/Plan see problem list
== END 2017-03-15 11:55 | disposition home or self-care (01) | DRG 454 ==
LOC: JSAMEDAYSX 06:02 → J6S 15:00
PROVIDERS: ADMIT Neurological Surgery; ATTEND Neurological Surgery
PROC: 0SG0071 Fusion of Lumbar Vertebral Joint with Autologous Tissue Substitute, Posterior Approach, Posterior Column, Open Approach (ICD-10-PCS; 2017-03-09)
PROC: 0JR707Z Replacement of Back Subcutaneous Tissue and Fascia with Autologous Tissue Substitute, Open Approach (ICD-10-PCS; 2017-03-09)
PROC: 0QB00ZX Excision of Lumbar Vertebra, Open Approach, Diagnostic (ICD-10-PCS; 2017-03-09)
PROC: 00BT0ZZ Excision of Spinal Meninges, Open Approach (ICD-10-PCS; 2017-03-09)
PROC: 00QT0ZZ Repair Spinal Meninges, Open Approach (ICD-10-PCS; 2017-03-09)
PROC: 01NB0ZZ Release Lumbar Nerve, Open Approach (ICD-10-PCS; 2017-03-09)
PROC: 00JU0ZZ Inspection of Spinal Canal, Open Approach (ICD-10-PCS; 2017-03-09)
PROC: 0SG00AJ Fusion of Lumbar Vertebral Joint with Interbody Fusion Device, Posterior Approach, Anterior Column, Open Approach (ICD-10-PCS; principal; 2017-03-09 08:00)
DX: M48.061 Spinal stenosis, lumbar region without neurogenic claudication (principal); F31.89 Other bipolar disorder; E78.5 Hyperlipidemia, unspecified; E87.6 Hypokalemia; F41.8 Other specified anxiety disorders; R50.82 Postprocedural fever; M71.38 Other bursal cyst, other site; M53.86 Other specified dorsopathies, lumbar region; D32.1 Benign neoplasm of spinal meninges; Z87.891 Personal history of nicotine dependence
CPT/HCPCS: 36415; 71020-TC; 72131-TC; 76000-TC; 80048; 80053; 81003; 83735; 85025; 85027; 85610; 86850; 86900; 86901; 88304-TC; 94010; 94760; 97116-GP; 97161-GP; J1644